=== PATIENT | male | born 1985 | race African-American/Black ===

== ENCOUNTER 2022-05-05 09:45 | Outpatient (CLI) | payer OTHER ==
[2022-05-05 10:15] VITALS: BP 112/80
--- NOTE | 2022-05-05 10:15 | SLEEP CARE CONSULTATION ---
Information from patient questionnaire entered by Bhavani Malone. I have reviewed and concur with the information entered by Bhavani Malone. This document represents the service I personally performed and the decisions made by me, Sharri Maldonado ARNP. History of Present Illness Service Date and Time: 05/05/2022 0945 Reason for Visit: New patient Chief Complaint: reports: Insomnia, Unrefreshed sleep, Snoring, Fatigue, Frequent awakenings at night Date of Onset: 2YRS Usual bedtime: 10PM Time it takes to fall asleep: 30MIN Snores at night: Yes Observed to quit breathing while asleep: Yes (his has told him) Sleeps alone due to snoring: No Number of times waking at night: 3-4 Reasons for waking at night: reports: Snoring, Other (UNKNOWN ). denies: Choking, Gasping for air Toss, Turn, or Twitch while sleeping: Yes Recalls having dreams: No Usually gets out of bed at: 630AM; weekends 08-0900AM Feels refreshed in the morning: No Morning headache: No Sleepy or fatigued during the day: Yes Ever fallen asleep while driving: No Takes day naps: No Dreams during day naps: No Prior sleep studies: No Additional HPI information: I had the pleasure of seeing EVA RUCKER today regarding the possibility of him having a sleep disorder. His current complaints are fatigue, frequent night awakenings, insomnia, snoring and unrefreshed sleep. He states he does not sleep good at night. He will wake up a couple times and is tired during the day. He states he rarely wakes up feeling rested. He states about 2 years ago he started having more fatigue. He "used to be a morning person" but now has to "drag himself out of bed". His has told him that he snores and has pauses in breathing. He has woke himself up snoring but denies choking or gasping for air. He states he usually wakes up with a dry mouth and throat in the morning. He will keep water at his bedside to drink and moisten his mouth. He denies drowsy driving and daytime naps. He does have a sibling that has sleep apnea and is being treated. 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 Patient is and lives in [place]. Have you smoked in the past 12 months: No Alcohol use: Yes Alcohol amount and frequency: 1-3 A WEEK Caffeine use: Yes Caffeine amount and frequency: 1 DAILY Family History Family history of sleep disordered breathing: Yes Family Hx Sleep Apnea: Mother: Snoring, Sibling: Sleep apnea - Treated Allergies and Home Medications Known drug allergies: No Drug allergies reviewed: Yes (NKDA) Home medication list reviewed: Yes (no daily medications) Review of Systems Cardiovascular: denies: high blood pressure Respiratory: denies: shortness of breath Gastrointestinal: denies: heartburn, difficulty swallowing Neurological: denies: headaches Psychiatric: denies: anxiety, depression Ear/Nose/Throat: reports: dry mouth/throat (usually in morning), wisdom teeth removed. denies: tonsillectomy Endocrine: denies: thyroid disease Immunologic: denies: allergies to food or environment Physical Exam Vital signs obtained and entered by: BHAVANI Brandt MA Blood Pressure: 112/80 (LEFT ARM) Cuff size: regular Heart Rate: 69 O2 Saturation: 97 Height: 5 ft 8 in Weight: 201 lb 6.4 oz Body Mass Index: 30.6 BMI Classification: Obese Neck circumference: 15.5 Mouth and throat: narrow oropharynx Soft palate: long Hard palate: normal Uvula: long, edematous Uvula visualization: 25% Mallampati Class III Tongue: enlarged in size with teeth sky on lateral edges Tonsils: small Neck: normal w/o lymphadenopathy or thyromegaly Heart: regular rate and rhythm Lungs: clear bilaterally Impression and Plan 1. Suspected Obstructive Sleep Apnea-Hypopnea Syndrome, as suggested by a history of loud and irregular snoring, observed cessation of breath while aslee p, frequent awakening during the night, unrefreshed sleep, and excessive daytime sleepiness. Narrow oropharynx and obesity are common predisposing factors for obstructive sleep apnea-hypopnea syndrome. I recommend proceeding to polysomnography to confirm the diagnosis and to assess severity. If the patient has significant sleep disordered breathing, a manual CPAP titration study will also be performed to find the optimal treatment pressure. I informed the patient of what the sleep studies involve and after some discussion, obtained agreement to proceed. The pathophysiology of obstructive sleep apnea-hypopnea syndrome was discussed with the patient and health risks of cardiovascular and cerebrovascular disease if not treated. 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 Patient agreed to plan. * Schedule polysomnography * Avoid long distance driving or driving when feeling sleepy. * Avoid alcohol, sedative and muscle relaxant around bedtime. * Attempt to lose weight. * Review instructions provided by trained office staff on how to prepare for the sleep study. * Return for follow-up after sleep study completed. Counseling Topics: Weight loss health impact Visit Type: In Office Time Spent with Patient (minutes): 30 Provider Statement: I spent 100% of the Face to Face Visit with the patient with greater than 50% spent counseling the patient and coordination of care.
== END 2022-05-05 09:46 | disposition home or self-care (01) ==
LOC: SC 09:45
PROVIDERS: ATTEND Nurse Practitioner Family
DX: R06.83 Snoring (principal); G47.8 Other sleep disorders; R06.81 Apnea, not elsewhere classified; G47.10 Hypersomnia, unspecified; R53.83 Other fatigue; E66.9 Obesity, unspecified; Z68.30 Body mass index [BMI] 30.0-30.9, adult
CPT/HCPCS: 99203; 99212

== ENCOUNTER 2022-05-26 19:21 | Outpatient (CLI) | payer OTHER | END 2022-05-26 19:22 | disposition home or self-care (01) | LOC: SC 19:21 | PROVIDERS: ATTEND Nurse Practitioner Family | DX: G47.33 Obstructive sleep apnea (adult) (pediatric) (principal) | CPT/HCPCS: 95810 ==

== ENCOUNTER 2022-06-10 15:04 | Outpatient (CLI) | payer OTHER ==
--- NOTE | 2022-06-10 15:28 | SLEEP CARE CONSULTATION ---
Information from patient questionnaire entered by Bhavani Malone. I have reviewed and concur with the information entered by Bhavani Malone. This document represents the service I personally performed and the decisions made by , Sharri Maldonado ARNP. History of Present Illness Service Date and Time: 06/10/2022 1504 Initial [place] Sleepiness Scale score: 15 (05/05/22) Current [place] Sleepiness Scale score: 11 (06/10/22) Additional HPI information: EVA RUCKER returns for follow up and results of the recently performed polysomnography. I explained the pathophysiology behind obstructive sleep apnea. We then spent quite a bit of time discussing different treatment options. For mild obstructive sleep apnea, surgery and oral appliance are alternatives to nasal CPAP therapy but in moderate or severe cases, nasal CPAP is the most effective and reliable treatment. Because apnea is primarily in supine position, then positional management therapy could be effective. Methods discussed such as positioning with pillows to prevent supine sleep. I reviewed the impact of weight changes on sleep apnea and strongly recommended losing weight. After some discussion, the patient opted to go with the nasal CPAP therapy. Nasal autoCPAP set at 4-15 cmH20 will be ordered with rationale explained. A manual titration study will be ordered if unable to find optimal pressure with office adjustments. I explained how CPAP machine works and what to expect when using the machine. Using CPAP every night in order to get used to it was emphasized. Patient advised to put CPAP mask on before getting into bed so as not to fall asleep without CPAP. To assist acclimation to CPAP use, it could also be used for a short time during day while reading or watching TV. The patient was instructed to call the CPAP supplier to discuss any mechanical problem that may occur. If the mask given is uncomfortable or is difficult to keep on through the night even with adjustment, contact the CPAP supplier as many will replace with another mask style if notified before 30 days. If snoring or perceives is not getting enough air or too much air from the machine, notify this office. Patient counseled not drink alcohol less than 4 hours before bedtime as it can increase snoring and apnea. Patient was cautioned about risks of drowsy driving until sleepiness symptoms resolve. Patient denies drowsy driving. Sleep Study - Results Type of Sleep Study: Polysomnography (COMPLETED 05/26/22) Prior sleep studies: No Polysomnography/Home Sleep Study results: IMPRESSION: The quality of the study is good. The patient had normal sleep efficiency. The sleep architecture was abnormal for sleep fragmentation and reduced amount of time spent in REM and slow wave sleep (N3). Respiratory monitoring showed mild obstructive sleep apnea-hypopnea (AHI = 7.3) associated with frequent arousals, oxyhemoglobin desaturation and minimal hypoxia (sallie oxygen saturation of 88%). The respiratory events occurred almost exclusively during supine sleep (supine AHI = 11.2; non- supine = 2.32). Snore was infrequent and light in intensity. There was no significant periodic leg movement of sleep. Cardiac rhythm was normal sinus rhythm without significant arrhythmia. No abnormal behavior (parasomnia) observed during the night. Allergies and Home Medications Drug allergies reviewed: Yes (NKDA) Home medication list reviewed: Yes (no changes) Review of Systems Review of systems same as previous: Yes (no changes) Physical Exam Vital signs obtained and entered by: BHAVANI Brandt MA Blood Pressure: 128/72 (LEFT ARM) Cuff size: regular Heart Rate: 79 O2 Saturation: 99 Height: 5 ft 8 in Weight: 206 lb 6.4 oz Body Mass Index: 31.4 BMI Classification: Obese Impression and Plan 1. Obstructive Sleep Apnea-Hypopnea Syndrome, mild, with lowest oxygen saturation of 88%. Obviously this is the cause of the patients symptoms of unrefreshed sleep, and excessive daytime sleepiness. As mentioned above, the patient will be started on nasal autoCPAP therapy with pressure set at 4-15 cmH2 O. A manual titration study will be completed if unable to find optimal treatment pressure with office adjustments. Compliance guidelines also reviewed. A copy of compliance guidelines will be given for reference at check out. Because the apnea is more severe supine, I instructed to avoid sleeping supine using pillow positioning until able to start CPAP use. * Nasal auto CPAP therapy, pressure at 4-15 cm H2O. * Attempt to lose weight. * Avoid alcohol consumption near bedtime. * Avoid supine sleep until using CPAP. * The patient is again cautioned about driving until sleepiness completely resolves. * Return one month after CPAP obtained. I will assess response to therapy and compliance at that time. Counseling Topics: Weight loss health impact Visit Type: In Office Time Spent with Patient (minutes): 20 Provider Statement: I spent 100% of the Face to Face Visit with the patient with greater than 50% spent counseling the patient and coordination of care.
[2022-06-10 15:29] VITALS: BP 128/72
== END 2022-06-10 15:05 | disposition home or self-care (01) ==
LOC: SC 15:04
PROVIDERS: ATTEND Nurse Practitioner Family
DX: G47.33 Obstructive sleep apnea (adult) (pediatric) (principal); E66.9 Obesity, unspecified; Z68.31 Body mass index [BMI] 31.0-31.9, adult
CPT/HCPCS: 99212; 99213

== ENCOUNTER 2022-08-03 09:53 | Outpatient (CLI) | payer OTHER ==
--- NOTE | 2022-08-03 11:43 | MRI Report ---
PROCEDURE: WRIST WO - RT INDICATIONS: RIGHT WRIST PAIN TECHNIQUE: Noncontrast coronal T1 spin echo, proton density fast spin echo and T2 fast spin echo with fat satura tion; coronal 3-D gradient echo, axial T1 spin echo and T2 fast spin echo with fat saturation, sagitt al T1 spin echo through the wrist. COMPARISON: None. FINDINGS: Image quality: Images are mildly degraded by patient motion on multiple pulse sequences. Diagnostic information is obtained. Bones and cartilage: The carpal bones are normally aligned. No bone marrow contusions or fractures. No evidence for avascular necrosis. Scattered degenerative cystic changes are seen in the carpal gena newton. Type I lunate. Neutral ulnar variance. Partial-thickness cartilage thinning and irregularity is seen at the first carpal metacarpal joint and the radiocarpal joint. Carpal ligaments: The scapholunate and lunotriquetral ligaments appear intact. On sagittal images, the pisohamate ligament appears intact. Triangular fibrocartilage complex: The triangular fibrocartilage appears intact, with intact radial and ulnar attachments. Tendons and soft tissues: The carpal tunnel structures appear normal, including the median nerve. T he ulnar nerve appears normal within Guyon's canal. Thickening and heterogeneity of the extensor car pi ulnaris tendon is seen at the level of the ulnar styloid with intrasubstance fluid signal intensit y, consistent with partial tearing. There is surrounding fluid within the tendon sheath and mild soft tissue edema. The remaining extensor tendon compartments demonstrate normal morphology, without path ologic tendon sheath fluid. No significant ganglion cysts. IMPRESSION: 1.Partial tearing of the extensor carpi ulnaris tendon at the level of the distal ulna with superimpo sed tenosynovitis. 2.Mild chondromalacia at the first carpal metacarpal joint and radiocarpal joint. Reviewed by: Everett Arita MD on 08/03/2022 11:41 AM PDT Approved by: Everett Arita MD on 08/03/2022 11:41 AM PDT Station ID: [id number]
== END 2022-08-03 09:54 | disposition home or self-care (01) ==
LOC: DI 09:53
PROVIDERS: ATTEND Student in an Organized Health Care Education/Training Program
DX: S63.591A Other specified sprain of right wrist, initial encounter (principal); M94.231 Chondromalacia, right wrist

== ENCOUNTER 2022-08-13 13:25 | Outpatient (CLI) | payer OTHER ==
--- NOTE | 2022-08-13 13:51 | SLEEP CARE CONSULTATION ---
Information from patient questionnaire entered by Bhavani Malone. I have reviewed and concur with the information entered by Bhavani Malone. This document represents the service I personally performed and the decisions made by , Sharri Maldonado ARNP. History of Present Illness Service Date and Time: 08/13/2022 1325 Previous diagnosis: Mild, Obstructive Sleep Apnea-Hypopnea Syndrome AHI: 7.3 (in 2022) Reason for follow up: first compliance (SET UP 06/21/22) Equipment type: CPAP (RESMED Airsense 10, s/u 06/2022; SD CARD NEEDED FOR DOWNLOAD AND PRESSURE CHANGE) Equipment obtained from: Other ([facility]; got inital supplies) Mask style: Nasal pillows (Davi II) Backup mask available: No (will keep old mask when replaced) Last cushion change: 2 weeks Prior sleep studies: No Type of Sleep Study: Polysomnography (COMPLETED 05/26/22) HPI additional information: EVA RUCKER was diagnosed to have mild, AHI 7.3, obstructive sleep apnea- hypopnea syndrome and returned today for CPAP therapy first compliance follow-up. Sleep Study - Results Type of Sleep Study: Polysomnography (COMPLETED 05/26/22) Prior sleep studies: No CPAP Compliance Data - Data Reviewed with Patient Average duration of nightly device use: 3 hours 41 minutes Compliance rate %: 38 (49/52 days used; 53% in last 30 days) Current pressure setting (cmH2O): 4-15 (median 5.4, avg 7.6, max 9.0) Average residual AHI: 3.8 Central apnea: 0.4 Obstructive apnea: 2.3 Hypopnea: 0.2 Average large leak: 6.5 lpm Subjective Patient concerns: reports: dry mouth, nose, throat (dry nose). denies: aerophagia, mask discomfort, air blowing in eyes, mask leak noise, condensation in mask/hose, nasal congestion, epistaxis, other Observed to snore while using device: No Current pressure setting perceived as: comfortable On therapy, patient: reports: sleeping better, awakening more refreshed, being more awake and alert during the day, more rested overall. denies: drowsiness while driving Initial [place] Sleepiness Scale score: 15 (05/05/22) Current [place] Sleepiness Scale score: 11 (08/13/22) Allergies and Home Medications Known drug allergies: No Drug allergies reviewed: Yes Home medication list reviewed: Yes (no changes) Allergy and home medication list: Allergies No Known Drug Allergies Allergy (Verified 08/12/22 17:05) Review of Systems Review of systems same as previous: Yes (no changes) Physical Exam Vital signs obtained and entered by: BHAVANI Brandt MA Blood Pressure: 122/78 (LEFT ARM) Cuff size: regular Heart Rate: 69 O2 Saturation: 98 Height: 5 ft 8 in Weight: 203 lb 12.8 oz Body Mass Index: 30.9 BMI Classification: Obese Impression and Plan 1. Obstructive Sleep Apnea-Hypopnea Syndrome, mild, with good treatment compliance and good apnea control. On CPAP therapy, the patient has better sleep quality and is more rested overall. He has significant improvement of his sleep apnea. He is getting used to the mask but is struggling with getting at least 4 hours with mask on. He states he sleeps from 11-12 midnight to about 5-6 AM nightly. He should be able to make the 4 hours of more as long he does not take the mask off during the night. He voiced understanding. He did get some dry nose and tried to increase his humidity on the machine. He ended up with condensation in the tubing making noise and waking him up. He turned the humidity back to Auto. I advised trying to turn the heated hose up when turning up the humidity to reduce condensation. He voiced understanding. I will follow up with him in about a month to recheck compliance. The patients pressure will be changed to autoCPAP 6-9 cmH20 to reflect pressures being used. Patient advised to contact me if pressure change is uncomfortable so that it can be adjusted. Goals for apnea control discussed. Patient's apnea severity and rationale for treatment to reduce apnea, improve sleep quality and reduce cardiovascular and cere brovascular events was reviewed. 2. Obesity, unspecified. Currently patients BMI is 30.9. Obesity increases the risk of apnea, CPAP pressure requirements and overall health risks especially cardiovascular and diabetes. Thus patient is advised to lose weight. * Change auto CPAP pressure to 6-9 cmH2O * Notify me if snoring with mask or feeling that the pressure is too much or too little * Attempt to lose weight * Call this office if any problems using CPAP * Return for follow up in 1-2 months, or sooner if concerns arise Counseling Topics: Spare mask, Weight loss health impact Visit Type: In Office Time Spent with Patient (minutes): 21 Provider Statement: I spent 100% of the Face to Face Visit with the patient with greater than 50% spent counseling the patient and coordination of care.
[2022-08-13 13:57] VITALS: BP 122/78
== END 2022-08-13 13:26 | disposition home or self-care (01) ==
LOC: SC 13:25
PROVIDERS: ATTEND Nurse Practitioner Family
DX: G47.33 Obstructive sleep apnea (adult) (pediatric) (principal); E66.9 Obesity, unspecified; Z68.30 Body mass index [BMI] 30.0-30.9, adult
CPT/HCPCS: 99212; 99213

== ENCOUNTER 2023-02-18 09:08 | Outpatient (CLI) | payer OTHER ==
--- NOTE | 2023-02-18 09:32 | Sleep Patient Instructions ---
Sleep Center Visit Summary - Patient Visit Information Reason for Visit: Two month followup - Patient Instructions Additional Instructions: You were here for follow up of CPAP therapy. You will be continued on CPAP therapy with pressure at 6-9 cmH2O. You should follow up with sleep care in 3 months. You may contact us sooner for any questions or concerns. - Clinic Information Contact: [facility] [address] [place] [id number] [email or web address] T: [phone]
--- NOTE | 2023-02-18 09:36 | SLEEP CARE CONSULTATION ---
Information from patient questionnaire entered by Bhavani Malone. I have reviewed and concur with the information entered by Bhavani Malone. This document represents the service I personally performed and the decisions made by , Sharri Maldonado ARNP. History of Present Illness Service Date and Time: 02/18/2023 0908 Previous diagnosis: Mild, Obstructive Sleep Apnea-Hypopnea Syndrome AHI: 7.3 (in 2022) Reason for follow up: other (2 MONTH F/U) Equipment type: CPAP (RESMED Airsense 10, s/u 06/2022; SD CARD NEEDED FOR DOWNLOAD AND PRESSURE CHANGE) Equipment obtained from: Other ([facility]; getting supplies) Mask style: Nasal pillows (Davi II) Backup mask available: No (will keep old mask when replaced) Last cushion change: last week Prior sleep studies: No Type of Sleep Study: Polysomnography (COMPLETED 05/26/22) HPI additional information: EVA RUCKER was diagnosed to have mild, AHI 7.3, obstructive sleep apnea- hypopnea syndrome and returned today for CPAP therapy two month follow-up. Sleep Study - Results Type of Sleep Study: Polysomnography (COMPLETED 05/26/22) Prior sleep studies: No CPAP Compliance Data - Data Reviewed with Patient Average duration of nightly device use: 5 hours 20 minutes Compliance rate %: 42 (37/60 days used; 53% in last 30 days) Current pressure setting (cmH2O): 6-9 Average residual AHI: 1.7 Central apnea: 0.4 Obstructive apnea: 0.8 Hypopnea: 0.1 Average large leak: 5.7 L/min Subjective Missed days of use due to: reports: mask issues (mask broke), illness (cold with stuffy nose) Patient concerns: denies: aerophagia, mask discomfort, air blowing in eyes, mask leak noise, condensation in mask/hose, nasal congestion, dry mouth, nose, throat, epistaxis Observed to snore while using device: No Current pressure setting perceived as: comfortable On therapy, patient: reports: sleeping better, awakening more refreshed, being more awake and alert during the day, more rested overall. denies: drowsiness while driving Initial [place] Sleepiness Scale score: 15 (05/05/22) Current [place] Sleepiness Scale score: 11 (02/18/23) Allergies and Home Medications Known drug allergies: No Drug allergies reviewed: Yes Home medication list reviewed: Yes (no changes) Allergy and home medication list: Allergies No Known Drug Allergies Allergy (Verified 02/14/23 09:55) Review of Systems Review of systems same as previous: Yes (NO CHANGE) Physical Exam Vital signs obtained and entered by: BHAVANI Brandt MA Blood Pressure: 110/68 (LEFT ARM) Cuff size: regular Heart Rate: 67 O2 Saturation: 98 Height: 5 ft 8 in Weight: 198 lb 6.4 oz Body Mass Index: 30.2 BMI Classification: Obese Impression and Plan 1. Obstructive Sleep Apnea-Hypopnea Syndrome, mild, with fair treatment compliance and good apnea control. On CPAP therapy, the patient has better sleep quality and is more rested overall. Patient has significant improvement of their sleep apnea and is satisfied with current CPAP therapy. He had a cold with nasal congestion that limited his ability to use his CPAP. His toddler at home also broke his mask and it took some time to get a replacement. He has increased his use of the CPAP in the last month. I will have him return in 3 months to recheck his compliance. Patient's apnea severity and rationale for treatment to reduce apnea, improve sleep quality and reduce cardiovascular and cerebrovascular events was reviewed. 2. Obesity, unspecified. Currently patients BMI is 30.2. Obesity increases the risk of apnea, CPAP pressure requirements and overall health risks especially cardiovascular and diabetes. Thus patient is advised to lose weight. * Continue auto CPAP pressure at 6-9 cmH2O * Notify me if snoring with mask or feeling that the pressure is too much or too little * Attempt to lose weight * Call this office if any problems using CPAP * Return for follow up in 3 months, or sooner if concerns arise Counseling Topics: Spare mask, Weight loss health impact Follow up with Sleep Care in: 3 months Visit Type: In Office Time Spent with Patient (minutes): 12 Provider Statement: I spent 100% of the Face to Face Visit with the patient with greater than 50% spent counseling the patient and coordination of care.
[2023-02-18 09:44] VITALS: BP 110/68; O2SAT 98
== END 2023-02-18 09:09 | disposition home or self-care (01) ==
LOC: SC 09:08
PROVIDERS: ATTEND Nurse Practitioner Family
DX: G47.33 Obstructive sleep apnea (adult) (pediatric) (principal); E66.9 Obesity, unspecified; Z68.30 Body mass index [BMI] 30.0-30.9, adult
CPT/HCPCS: 99212

== ENCOUNTER 2023-05-20 09:25 | Outpatient (CLI) | payer OTHER ==
--- NOTE | 2023-05-20 09:52 | Sleep Patient Instructions ---
Sleep Center Visit Summary - Patient Visit Information Reason for Visit: 3-month follow-up - Patient Instructions Additional Instructions: You were here for follow up of CPAP therapy. You will be continued on CPAP therapy with pressure at 6-9 cmH2O. You should follow up with sleep care in 6 months. You may contact us sooner for any questions or concerns. - Clinic Information Contact: [facility] [address] [place] [address] [email or web address] T: [phone]
--- NOTE | 2023-05-20 09:55 | SLEEP CARE CONSULTATION ---
Information from patient questionnaire entered by Bhavani Malone. I have reviewed and concur with the information entered by Bhavani Malone. This document represents the service I personally performed and the decisions made by , Sharri Maldonado ARNP. History of Present Illness Service Date and Time: 05/20/2023924 Previous diagnosis: Mild, Obstructive Sleep Apnea-Hypopnea Syndrome AHI: 7.3 (in 2022) Reason for follow up: three month (F/U) Equipment type: CPAP (RESMED Airsense 10, s/u 06/2022; SD CARD NEEDED FOR DOWNLOAD AND PRESSURE CHANGE) Equipment obtained from: Other ([facility]; getting supplies) Mask style: Nasal pillows (Davi II) Backup mask available: Yes Last cushion change: yesterday Prior sleep studies: No Type of Sleep Study: Polysomnography (COMPLETED 05/26/22) HPI additional information: EVA RUCKER was diagnosed to have mild, AHI 7.3, obstructive sleep apnea- hypopnea syndrome and returned today for CPAP therapy three month follow-up. Sleep Study - Results Type of Sleep Study: Polysomnography (COMPLETED 05/26/22) Prior sleep studies: No CPAP Compliance Data - Data Reviewed with Patient Average duration of nightly device use: 5 hours 27 minutes Compliance rate %: 41 (50/90 days used; 63% in last 30 days) Current pressure setting (cmH2O): 6-9 Average residual AHI: 2.5 Central apnea: 0.7 Obstructive apnea: 1.3 Average large leak: 3.2 L/min Subjective Missed days of use due to: reports: illness Patient concerns: denies: aerophagia, mask discomfort, air blowing in eyes, mask leak noise, condensation in mask/hose, nasal congestion, dry mouth, nose, throat, epistaxis Observed to snore while using device: No Current pressure setting perceived as: comfortable On therapy, patient: reports: sleeping better, awakening more refreshed, being more awake and alert during the day, more rested overall. denies: drowsiness while driving Initial [place] Sleepiness Scale score: 15 (05/05/22) Current [place] Sleepiness Scale score: 11 (05/20/23) Allergies and Home Medications Known drug allergies: No Drug allergies reviewed: Yes Home medication list reviewed: Yes (no changes) Allergy and home medication list: Allergies No Known Drug Allergies Allergy (Verified 05/18/23 11:31) Review of Systems Review of systems same as previous: Yes (NO CHANGE) Physical Exam Vital signs obtained and entered by: BHAVANI Brandt MA Blood Pressure: 135/84 (RIGHT ARM) Cuff size: regular Heart Rate: 68 O2 Saturation: 99 Height: 5 ft 8 in Weight: 218 lb 3.2 oz Body Mass Index: 33.1 BMI Classification: Obese Impression and Plan 1. Obstructive Sleep Apnea-Hypopnea Syndrome, mild, with fair treatment compliance and good apnea control. On CPAP therapy, the patient has better sleep quality and is more rested overall. He was sick with a respiratory illness that limited his use of the CPAP, but in the last 30 days he has increased his compliance to 63%. I advised him to continue to use the CPAP nightly and he will be in compliance with using the CPAP. He voiced understanding. Patient's apnea severity and rationale for treatment to reduce apnea, improve sleep quality and reduce cardiovascular and cerebrovascular events was reviewed. 2. Obesity, unspecified. Currently patients BMI is 33.1. Obesity increases the risk of apnea, CPAP pressure requirements and overall health risks especially cardiovascular and diabetes. Thus patient is advised to lose weight. * Continue auto CPAP pressure at 6-9 cmH2O * Notify me if snoring with mask or feeling that the pressure is too much or too little * Attempt to lose weight * Call this office if any problems using CPAP * Return for follow up in 6 months, or sooner if concerns arise Counseling Topics: Spare mask, Weight loss health impact Follow up with Sleep Care in: 6 months Visit Type: In Office Time Spent with Patient (minutes): 13 Provider Statement: I spent 100% of the Face to Face Visit with the patient with greater than 50% spent counseling the patient and coordination of care.
[2023-05-20 10:06] VITALS: BP 135/84; O2SAT 99
== END 2023-05-20 09:26 | disposition home or self-care (01) ==
LOC: SC 09:25
PROVIDERS: ATTEND Nurse Practitioner Family
DX: G47.33 Obstructive sleep apnea (adult) (pediatric) (principal); E66.9 Obesity, unspecified; Z68.33 Body mass index [BMI] 33.0-33.9, adult
CPT/HCPCS: 99212